=== PATIENT | female | born 1995 | race Caucasian/White ===

== ENCOUNTER 2019-02-27 21:02 | Emergency (ER) | payer MEDICAID ==
[~2019-02-27] VITALS: Ht 167.6 cm; Wt 63.0 kg
--- NOTE | 2019-02-27 22:00 | NUR ---
PT AAOX4. AMBULATORY. C/O BLE SWELLING X1 DAY. MD AT BEDSIDE FOR EVAL. VSS.
--- NOTE | 2019-02-27 23:00 | NUR ---
CODING DIRECTOR AT BEDSIDE FOR LABS.
[2019-02-27 23:04] LABS: BASOPHILS % (AUTO) 0.5 % (0.0-2.0); EOSINOPHILS % (AUTO) 1.7 % (0.0-6.0); HEMATOCRIT 39 % (33-45); HEMOGLOBIN 13.1 g/dL (11.5-14.8); LYMPHOCYTES # (AUTO) 2.1 /CMM (0.8-4.8); LYMPHOCYTES % (AUTO) 32.7 % (20.0-44.0); MEAN CORPUSCULAR HGB CONC 33 g/dl (31.0-36.0); MEAN CORPUSCULAR VOLUME 90 fL (82-100); MONOCYTES # (AUTO) 0.6 /CMM (0.1-1.30); MONOCYTES % (AUTO) 8.7 % (2.0-12.0); NEUTROPHILS # (AUTO) 3.7 /CMM (1.8-8.9); NEUTROPHILS % (AUTO) 56.4 % (43.0-81.0); PLATELET COUNT (AUTO) 238 /CMM (150-450); RED BLOOD CELL COUNT(AUTO) 4.36 MIL/uL (4.0-5.2); WHITE BLOOD COUNT (AUTO) 6.5 K/uL (4.3-11.0)
--- NOTE | 2019-02-27 23:06 | NUR ---
URINE COLLECTED AND SENT TO LAB
[2019-02-27 23:18] LABS: CALCIUM, SERUM 8.5 mg/dL (8.5-10.1); CREATININE 0.6 mg/dL (0.6-1.3); POTASSIUM 3.9 mmol/L (3.5-5.1)
[2019-02-27 23:51] VITALS: BP 135/84
--- NOTE | 2019-02-27 23:51 | NUR ---
Patient discharged to home in stable condition. Written and verbal after care instructions given. Patient verbalizes understanding of instruction. PT ambulatory with a steady gait. vss.
== END 2019-02-27 23:52 | disposition home or self-care (01) ==
LOC: ER 21:08
DX: R60.0 Localized edema (principal)
CPT/HCPCS: 36415; 80048-TC; 84703-TC; 85025-TC; 93970-TC